=== PATIENT | female | born 1985 | race African-American/Black ===

== ENCOUNTER 2018-10-02 19:29 | Emergency (ER) | payer OTHER ==
[2018-10-02 19:34] VITALS: BP 114/76; PULSE 75; TEMP 97.8; BMI 29.2
[2018-10-02] MEDS ORDERED: KETOROLAC TROMETHAMINE 60 MG/2 ML VIAL IM ONE (20:02)
[2018-10-02] MEDS ORDERED: KETOROLAC TROMETHAMINE 60 MG/2 ML VIAL ONE (20:04)
--- NOTE | 2018-10-02 20:06 | PDOC ---
History of Present Illness - General Chief Complaint: Chronic pain Stated Complaint: SHOULDER PAIN Time Seen by Provider: 10/02/18 19:43 - History of Present Illness Initial Comments: 10/02/18 20:03 33-year-old female with neck pain and left arm radicular symptoms 3 days without systemic symptoms. Past History - Past Medical History Allergies/Adverse Reactions: Allergies Allergy/AdvReac Type Severity Reaction Status Date / Time No Known Allergies Allergy Verified 10/02/18 19:34 Home Medications: Ambulatory Orders Cyclobenzaprine HCl [Flexeril 10 mg] 10 mg PO HS PRN #10 tablet 10/02/18 Ibuprofen [Motrin -] 600 mg PO TID #30 tablet 10/02/18 COPD: No - Reproductive History (#): 1 Para: 1 Therapeutic (s) & number: No - Suicide/Smoking/Psychosocial Hx Smoking History: Never smoked Hx Alcohol Use: No Drug/Substance Use Hx: No Substance Use Type: None Hx Substance Use Treatment: No Review of Systems - Review of Systems Musculoskeletal: Yes: See HPI, Neck Pain *Physical Exam - Vital Signs Last Vital Signs Temp Pulse Resp BP Pulse Ox 97.8 F 75 18 114/76 98 10/02/18 19:32 10/02/18 19:32 10/02/18 19:32 10/02/18 19:32 10/02/18 19:32 - Physical Exam Comments: 10/02/18 20:03 Cervical spine skin color and temperature are normal range of motion is slightly decreased. She has tenderness about the left trapezium and paracervical musculature. No midline tenderness. 5 out of 5 strength in bilateral upper extremities without gross sensorimotor deficits. Negative Spurling maneuver bilaterally she is neurovascularly intact. Upper extremity compartments are soft and nontender. Moderate Sedation - Procedure Monitoring Vital Signs: Procedure Monitoring Vital Signs Temperature 97.8 F 10/02/18 19:32 Pulse Rate 75 10/02/18 19:32 Respiratory Rate 18 10/02/18 19:32 Blood Pressure 114/76 10/02/18 19:32 O2 Sat by Pulse Oximetry (%) 98 10/02/18 19:32 Medical Decision Making - Medical Decision Making 10/02/18 20:04 Patient denies any chance of . I'll treat her with Toradol in the emergency room Motrin and Flexeril at home follow-up with spine surgery. *DC/Admit/Observation/Transfer Diagnosis at time of Disposition: Cervical strain - Discharge Dispostion Disposition: HOME Condition at time of disposition: Stable Decision to Admit order: No - Prescriptions Prescriptions: Cyclobenzaprine HCl [Flexeril 10 mg] 10 mg PO HS PRN #10 tablet PRN Reason: Muscle Spasms Ibuprofen [Motrin -] 600 mg PO TID #30 tablet - Referrals Referrals: Jong Silvestre MD [Staff Physician] - - Patient Instructions Printed Discharge Instructions: DI for Cervical Muscle Strain Additional Instructions: The anti-inflammatories one tablet 3 times a day with food. Discontinue the medication if it bothers her stomach. The muscle relaxers one tablet before bedtime this will make you sleepy. Return to the emergency room should symptoms worsen or go unresolved and follow-up with orthopedic surgery in 1-2 days for further evaluation and treatment options. Do not take any other medications besides Tylenol if she needed something additional for pain. If you need Tylenol please take it as directed. - Post Discharge Activity
== END 2018-10-02 20:21 | disposition home or self-care (01) ==
LOC: JERFT 19:29
PROC: 3E0233Z Introduction of Anti-inflammatory into Muscle, Percutaneous Approach (ICD-10-PCS; principal; 2018-10-02)
DX: S16.1XXA Strain of muscle, fascia and tendon at neck level, initial encounter (principal); X58.XXXA Exposure to other specified factors, initial encounter; Y93.89 Activity, other specified; Y92.89 Other specified places as the place of occurrence of the external cause; Y99.8 Other external cause status
CPT/HCPCS: 99281-25

== ENCOUNTER 2019-02-15 19:43 | Emergency (ER) | payer OTHER | END 2019-02-15 21:35 | disposition home or self-care (01) | LOC: JERFT 19:43 ==

== ENCOUNTER 2022-05-17 21:27 | Emergency (ER) | payer OTHER ==
[2022-05-17 21:44] VITALS: BP 108/62; PULSE 77; RESP 18; TEMP 98.2; BMI 30.9
[2022-05-17] MEDS ORDERED: ACETAMINOPHEN 325 MG TABLET (FP) PO ONE (22:24)
[2022-05-17 22:54] LABS: EPI CELLS >36 /uL (0-25.1); HYALINE CASTS 2 /uL (0-3.1); PH,URINE 5.5 (5.0-8.0); URINE APPEARANCE CLOUDY; URINE BACTERIA 1704 /uL (0-1359); URINE BILIRUBIN NEGATIVE (NEGATIVE); URINE COLOR YELLOW; URINE GLUCOSE (UA) NEGATIVE (NEGATIVE); URINE KETONE TRACE (NEGATIVE); URINE LEUK ESTERASE 1+ (NEGATIVE); URINE NITRITE NEGATIVE (NEGATIVE); URINE PROTEIN NEGATIVE (NEGATIVE); URINE RBC 12 /uL (0-23.9); URINE WBC 70 /uL (0-25.8)
[2022-05-17] MEDS ORDERED: ACETAMINOPHEN 325 MG TABLET (FP) ONE (23:11)
[2022-05-17 23:36] LABS: BASO % 0.9 % (0-2.0); EOS % 1.9 % (0-4.5); HEMATOCRIT 33.9 % (32.4-45.2); HEMOGLOBIN 10.8 GM/dL (10.7-15.3); LYMPH % 37.5 % (8-40); MCH 22.7 pg (25.7-33.7); MCHC 31.9 g/dl (32.0-36.0); MEAN CELL VOLUME 71.1 fl (80-96); MEAN PLT VOLUME 8.3 fl (7.5-11.1); NEUT % 51.7 % (42.8-82.8); PLATELET COUNT 338 10^3/uL (134-434); RBC 4.77 M/mm3 (3.60-5.2); WHITE BLOOD COUNT 8.8 K/mm3 (4.0-10.0)
[2022-05-17 23:59] LABS: ALBUMIN 4.1 g/dl (3.4-5.0)
[2022-05-18 00:02] LABS: CREATININE 0.8 mg/dL (0.55-1.3)
[2022-05-18] MEDS ORDERED: LIDOCAINE HCL/PF 1% SDV 5ML VIAL ONE (00:02)
[2022-05-18 00:03] LABS: BILIRUBIN,TOTAL 0.3 mg/dL (0.2-1); TOT PROT 7.3 g/dl (6.4-8.2)
== END 2022-05-18 00:13 | disposition home or self-care (01) ==
LOC: JER 21:27
PROC: 3E023GC Introduction of Other Therapeutic Substance into Muscle, Percutaneous Approach (ICD-10-PCS; principal; 2022-05-17)
DX: N72 Inflammatory disease of cervix uteri (principal); N30.01 Acute cystitis with hematuria
CPT/HCPCS: 36415; 72170-TC-FY; 76830-TC; 80053; 81003; 84703; 85025; 87086; 93971-TC; 99284-25